=== PATIENT | female | born 1975 ===

== ENCOUNTER 2019-02-12 19:23 | Emergency (ER) | payer SELFPAY ==
[~2019-02-12] VITALS: Ht 165.1 cm; Wt 72.7 kg
[2019-02-12 19:46] VITALS: Ht 165.1 cm; Wt 72.7 kg
[2019-02-12] MEDS ORDERED: TORADOL10 MG PO (21:13)
[2019-02-12 21:33] VITALS: BP 125/70
== END 2019-02-12 21:35 | disposition home or self-care (01) ==
LOC: D.ER 19:23
DX: S60.012A Contusion of left thumb without damage to nail, initial encounter (principal); W22.8XXA Striking against or struck by other objects, initial encounter; Y93.89 Activity, other specified; Y92.019 Unspecified place in single-family (private) house as the place of occurrence of the external cause; S63.622A Sprain of interphalangeal joint of left thumb, initial encounter